=== PATIENT | male | born 1975 | race Caucasian/White ===

== ENCOUNTER 2019-02-03 18:57 | Emergency (ER) | payer OTHER ==
[~2019-02-03] VITALS: Ht 185.4 cm; Wt 92.5 kg
[2019-02-03] MEDS ORDERED: IBUPROFEN800 MG PO (20:49)
[2019-02-03] MEDS ORDERED: TYLENOL-CODEINE1 TA1 PO (20:49)
[2019-02-03] MEDS ORDERED: CLEOCIN HCL300 MG PO (20:49)
== END 2019-02-03 21:40 | disposition home or self-care (01) ==
LOC: ER 18:57
DX: K08.89 Other specified disorders of teeth and supporting structures (principal)